=== PATIENT | female | born 1960 ===

== ENCOUNTER 2019-01-19 06:13 | Day surgery (SDC) | payer OTHER ==
[~2019-01-19 06:13] MED LIST: CYMBALTA60 MG PO; GABAPENTIN600 MG PO; LASIX40 MG PO; REMERON15 MG PO; RESTORIL30 M1 PO; SYNTHROID100 MCG PO; ZOCOR20 MG PO; [UNRECOGNIZED DRUG - OTHER] PO
== END 2019-01-19 13:56 | disposition home or self-care (01) ==
LOC: CIR.AMB 06:13
DX: M75.41 Impingement syndrome of right shoulder (principal); M13.811 Other specified arthritis, right shoulder

== ENCOUNTER 2020-11-12 08:48 | Outpatient (CLI) | payer OTHER | END 2020-11-12 08:49 | disposition home or self-care (01) | LOC: NUCLEAR 08:48 | PROVIDERS: ATTEND General Practice | DX: M17.0 Bilateral primary osteoarthritis of knee (principal) | CPT/HCPCS: 78315; A9503 ==